=== PATIENT | male | born 1940 | race Caucasian/White ===

== ENCOUNTER 2022-06-20 03:24 | Emergency (ER) | payer MEDICARE, BC ==
[~2022-06-20] VITALS: Ht 177.8 cm; Wt 91.2 kg
[~2022-06-20 03:24] MED LIST: ASPIRIN EC81 MG PO; ATENOLOL100 MG PO; CENTRUM SILVER1 EAC4 PO; FINASTERIDE5 MG PO; FLOMAX0.4 MG PO; FUROSEMIDE40 MG PO; HYDROCHLOROTHIA25 MG PO; METOPROLOL SUCC50 MG PO; MULTI VITAMIN1 EACH PO; NAPROSYN500 MG PO; OMEPRAZOLE20 MG PO; POTASSIUM CHLO20 ME1 PO; TAMSULOSIN HCL0.4 MG PO; VITAMIN C500 M1 PO
[2022-06-20] MEDS ORDERED: XARELTO20 MG PO (03:46)
--- NOTE | 2022-06-20 07:52 | EKG ---
[facility] [address] [facility] [place] [address] Signed Sinus rhythm with premature atrial complexes Left anterior fascicular block Abnormal ECG When compared with ECG of 20-JUN-2022 03:31, (Unconfirmed) Sinus rhythm has replaced Atrial fibrillation Vent. rate has decreased BY [address] no longer depressed in Lateral leads Confirmed by AMINA PATEL MD ([id number]) on 06/20/2022 7:52:23 AM Electronically Signed By: AMINA PATEL MD 06/20/22 0752 PATIENT NAME: TYREL DANIELS Electrocardiogram DATE OF : 40 PHYSICIAN: AMINA PATEL MD REPORT #: [id number] REPORT IS CONFIDENTIAL AND NOT TO BE RELEASED WITHOUT AUTHORIZATION
--- NOTE | 2022-06-20 07:52 | EKG ---
[facility] [address] [facility] [place] [address] Signed Atrial fibrillation with rapid ventricular response Left anterior fascicular block Nonspecific ST abnormality Abnormal ECG When compared with ECG of 30-APR-2022 11:22, Atrial fibrillation has replaced Sinus rhythm Confirmed by AMINA PATEL MD ([id number]) on 06/20/2022 7:52:09 AM Electronically Signed By: AMINA PATEL MD 06/20/22 0752 PATIENT NAME: JEREMIAHTYREL Justin Electrocardiogram DATE OF : 40 PHYSICIAN: AMINA PATEL MD REPORT #: [id number] REPORT IS CONFIDENTIAL AND NOT TO BE RELEASED WITHOUT AUTHORIZATION
== END 2022-06-20 06:54 | disposition home or self-care (01) ==
LOC: ED 03:24
DX: R10.9 Unspecified abdominal pain (principal); I48.91 Unspecified atrial fibrillation; Z79.01 Long term (current) use of anticoagulants; Z79.899 Other long term (current) drug therapy
CPT/HCPCS: 36415; 74174; 80053; 81001; 83690; 83735; 84484; 85025; 85610; 85730; 87502; 93005; 93010; 96361; 96375; 99284-25; C9803; J1170; J2405; J7030; Q9967; U0003

== ENCOUNTER 2024-04-07 16:36 | Emergency (ER) | payer MEDICARE, BC ==
[~2024-04-07] VITALS: Ht 177.8 cm; Wt 93.0 kg
[~2024-04-07 16:36] MED LIST changes: +XARELTO20 MG PO
--- OUTSIDE RECORDS SUMMARY | 2024-04-07 16:39 | XMS ---
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 Eddi has no Care Guidelines for this patient. Lina VISIT COUNT (12 MO.) 1 [facility] Neil TOTAL 1 NOTE: Visits indicate total known visits. ED/UCC VISIT TRACKING (12 MO.) 04/07/2024 16:37 [facility] [place] TYPE: Emergency COMPLAINT: - WOUND CHECK INPATIENT VISIT TRACKING (12 MO.) No inpatient visits to display in this time frame [id number]
[2024-04-07 18:18] VITALS: BP 114/74
== END 2024-04-07 18:18 | disposition home or self-care (01) ==
LOC: ED 16:36
DX: S81.801D Unspecified open wound, right lower leg, subsequent encounter (principal); W22.8XXD Striking against or struck by other objects, subsequent encounter; Z79.899 Other long term (current) drug therapy
CPT/HCPCS: 99282

== ENCOUNTER 2024-08-29 15:56 | Inpatient (IN) | payer MEDICARE, BC ==
[2024-08-29] VITALS (10 sets, daily range): BP systolic 92–106; BP diastolic 61–89
[~2024-08-29] VITALS: Ht 177.8 cm; Wt 94.5 kg
--- NOTE | ~2024-08-29 | EKG ---
[facility] [address] [facility] [place], [place] [address] Draft EK completed, results pending confirmation PATIENT NAME: TYREL DANIELS Electrocardiogram DATE OF : 40 PHYSICIAN: PRELIMINARY REPORT #: [id number] REPORT IS CONFIDENTIAL AND NOT TO BE RELEASED WITHOUT AUTHORIZATION
[2024-08-29] MEDS ORDERED: ALDACTONE25 MG PO (16:25)
[2024-08-29] MEDS ORDERED: VENTOLIN HFA18 GM (16:26)
[2024-08-29] MEDS ORDERED: ROSUVASTATIN CA20 MG PO (16:26)
[2024-08-29 16:41] LABS: BASOPHILS 0.5 % (0-2); EOSINOPHILS 0.9 % (0-6); HEMATOCRIT 37.7 % (35.0-50.0); HEMOGLOBIN 12.6 g/dL (12.0-18.0); LYMPHOCYTES 6.4 % (24-44); MCH 29.9 (27-36); MCHC 33.3 g/dl (30-36); MCV 89.7 fl (81-99); MONOCYTES 4.7 % (0-12); NEUTROPHILS 87.5 % (39-80); PLATELET COUNT 173 K/uL (140-440); RBC 4.21 M/ul (4.3-5.7); RDW 14.3 (10.5-15.0)
[2024-08-29] MEDS ORDERED: FUROSEMIDE 100 MG/10 ML VIAL IV ONE (16:45)
[2024-08-29] MEDS ORDERED: METOPROLOL TARTRATE 5 MG/5 ML VIAL IV SCH (16:45)
[2024-08-29 16:51] LABS: INR 1.55 (0.80-1.30); PROTIME 18.1 Sec (11.2-14.2)
[2024-08-29 16:53] LABS: PARTIAL THROMBOPLASTIN TIME 30.2 Sec (22.9-41.3)
[2024-08-29 17:04] LABS: ALBUMIN 2.9 g/dL (3.4-5.0); ALBUMIN/GLOBULIN RATIO 0.85 (1.1-2.4); ANION GAP 14.1 (7-21); BILIRUBIN, TOTAL 0.5 ng/dL (0.2-1.0); BUN/CREATININE RATIO 20.12 (6.0-28.6); CALCIUM 8.7 mg/dL (8.5-10.1); CREATININE, SERUM 1.64 mg/dL (0.70-1.30); MAGNESIUM 2.1 mg/dL (1.8-2.4); POTASSIUM 4.1 mmol/L (3.5-5.1); PROTEIN, TOTAL 6.3 g/dL (6.4-8.2)
[2024-08-29] MEDS ORDERED: dilTIAZem HCL 25 MG/5 ML VIAL IV ONE (18:00)
[2024-08-29] MEDS ORDERED: DILTIAZEM HCl/D5W 125 ML IV SCH (19:15)
[2024-08-29] MEDS ORDERED: DILTIAZEM HCl/D5W 125 ML IV ONE (19:15)
[2024-08-29] MEDS ORDERED: DOXYCYCLINE HYCLATE 100 MG CAP PO SCH (20:00)
[2024-08-29] MEDS ORDERED: CEFAZOLIN SODIUM 2 GM/20 ML SYR IV SCH (20:00)
[2024-08-29] MEDS ORDERED: Rivaroxaban 10 MG TAB PO SCH (20:15)
[2024-08-29] MEDS ORDERED: FUROSEMIDE 40 MG TAB PO SCH (20:15)
[2024-08-29] MEDS ORDERED: GABAPENTIN300 MG PO (20:17)
[2024-08-29] MEDS ORDERED: FLECAINIDE ACET50 MG PO (20:17)
[2024-08-29] MEDS ORDERED: METOPROLOL TARTRATE 50 MG TAB PO ONE (20:30)
[2024-08-29] MEDS ORDERED: FLECAINIDE ACETATE 50 MG TAB PO SCH (21:00)
[2024-08-29] MEDS ORDERED: ACETAMINOPHEN 325 MG TAB PO PRN (21:00)
[2024-08-29] MEDS ORDERED: FINASTERIDE 5 MG TAB PO SCH (21:00)
--- NOTE | 2024-08-29 21:16 | NUR ---
RECEIVED REPORT FROM THREAD MACHINE OPERATOR. PATIENT MOVED FROM STRETCHER TO BED BY STAFF. PATIENTS ADMISSION COMPLETED. MD AT BEDSIDE. PLAN OF CARE DISCUSSED WITH PATIENT BY MD AND ALL QUESTIONS ANSWERED. PATIENTS VITALS TAKEN AND RECORDED. PATIENTS ASSESMENT COMPLETED. BILAT LOW EXT ELEVATED ON PILLOWS. PATIENTS RLE HAS NOTED 3+ PITTING EDEMA FROM KNEE DOWN. PATIENTS LLE HAS 2T PITTING EDEMA FROM KNEE DOWN. PATIENT DENIES ANY PAIN. PM MEDS GIVEN PER ORDER. IV INFUSING PER ORDER. PATIENT ORIENTED TO ROOM AND CALL LIGHT. SANDWICH BOX PROVIDED AND FRESH ICE WATER PROVIDED. PATIENT DENIES ANY COMMENTS, QUESTIONS, OR CONCERNS. CALL LIGHT IN REACH.
--- NOTE | 2024-08-29 22:39 | NUR ---
DILT DRIP TITRATED PER ORDER-SEE FLOWSHEET. PATIENT IS RESTING IN BED. PATIENT REPORTS HEADACHE, PRN MEDICATION GIVEN PER ORDER. PATIENT ABLE TO REPOSITION SELF IN BED. PATIENT PROVIDED FRESH ICE WATER. PATIENT DENIES ANY FURTHER NEEDS. CALL LIGHT IN REACH.
--- NOTE | 2024-08-29 23:41 | NUR ---
PATIENT IS RESTING IN BED WATCHING TV. PATIENT REPORTS IMPROVEMENT IN HEADACHE IT IS NOW A 2/10. PATIENT DENIES ANY FURTHER INTERVENTIONS FOR HEADAHCE. PATIENTS DILT SRIP TITRATED PER PROTOCOL-SEE FLOWSHEET. WARM BLANKET PROVIDED. PATIENT DENIES ANY NEEDS. CALL LIGHT IN REACH.
[2024-08-30] VITALS (27 sets, daily range): BP systolic 80–108; BP diastolic 63–85
--- NOTE | 2024-08-30 00:06 | NUR ---
PATIENTS VITALS RECORDED. PATIENTS DILT DRIP TURNED OF PER ORDER-SEE FLOWSHEET. PATIENT DENIES ANY HEADAHCE OR PAIN AT THIS TIME. PATIENT IS NOW SL X2 PER ORDER. PATIENT ASSISTED TO TURN ONTOL LEFT SIDE. PATIENT DENIES ANY FURTHER NEEDS. CALL LIGHT IN REACH.
--- NOTE | 2024-08-30 01:04 | NUR ---
PATIENT IS RESTING IN BED WITH EYES CLOSED, RR 23. MAXWELL LIGHT IN REACH.
--- NOTE | 2024-08-30 02:06 | NUR ---
PATIENTS URINAL EMPTIED. PATIENT DENIES ANY PAIN. ASSESMENT COMPLETED. PATIENT DENIES ANY NEEDS. CALL LIGHT IN REACH.
--- NOTE | 2024-08-30 02:56 | NUR ---
PATIENTS HR FOR APPROX THE LAST 10-15 MIN HAS INCREASED TO 100-110. PATIENT PLACED BACK ON DILT DRIP PER ORDER-SEE FLOWSHEET. PATIENT IS RESTING IN BED. NAD NOTED. PATIET DENIES ANY NEEDS. CALL LIGHT IN REACH.
--- NOTE | 2024-08-30 03:19 | NUR ---
PATIENTS DILT DRIP TITRATED PER ORDER FOR HR SUSTAINING ABOVE 100-SEE FLOW SHEET. PATIENT IS RESTING IN BED WITH EYES CLOSED, RR20. NAD NOTED. CALL LIGHT IN REACH.
--- NOTE | 2024-08-30 03:51 | NUR ---
PATIENTS DILT DRIP TITRATED PER ORDER-SEE FLOWSHEET. PATIENTS URINAL EMPTIED. PATIENT PROVIDE SNACK. NO FURTHER NEEDS NOTED. CALL LIGHT IN REACH.
--- NOTE | 2024-08-30 04:05 | NUR ---
PATIENT IS RESTING IN BED ON RIGHT SIDE EYES CLOSED, RR 15. CALL LIGHT IN REACH.
[2024-08-30 05:24] LABS: BASOPHILS 0.4 % (0-2); EOSINOPHILS 1.3 % (0-6); HEMOGLOBIN 11.7 g/dL (12.0-18.0); LYMPHOCYTES 10.7 % (24-44); MCH 29.9 (27-36); MCHC 33.3 g/dl (30-36); MCV 89.6 fl (81-99); NEUTROPHILS 81.6 % (39-80); PLATELET COUNT 176 K/uL (140-440); RBC 3.91 M/ul (4.3-5.7); RDW 14.3 (10.5-15.0)
--- NOTE | 2024-08-30 05:27 | NUR ---
LAB IN ROOM. PATIENTS VITALS TAKEN. PATIENT DENIES ANY PAIN. ASSEMSENT COMPLETED. PATIENT REMAINS ON DILT DRIP NO CHANGES AT THIS TIME. AM MEDS GIVEN PER ORDER. PATIENT DENIES ANY NEEDS. CALL LIGHT IN REACH.
[2024-08-30 05:31] LABS: ANION GAP 10.6 (7-21); BUN/CREATININE RATIO 20.51 (6.0-28.6); CALCIUM 8.7 mg/dL (8.5-10.1); CREATININE, SERUM 1.56 mg/dL (0.70-1.30); MAGNESIUM 2.2 mg/dL (1.8-2.4); POTASSIUM 3.6 mmol/L (3.5-5.1)
--- NOTE | 2024-08-30 06:11 | NUR ---
PATIENTS DILT DRIP TITRATED PER ORDER-SEE FLOW SHEET. PATIENT IS RESTING IN BED WITH EYES CLOSED, RR 19. NAD NOTED. CALL LIGHT IN REACH.
[2024-08-30] MEDS ORDERED: POTASSIUM CHLORIDE 10 MEQ TABCR PO ONE ×2 (07:00→11:00)
[2024-08-30] MEDS ORDERED: METOPROLOL SUCCINATE 100 MG TABCR PO SCH (07:30)
[2024-08-30] MEDS ORDERED: TAMSULOSIN HCL 0.4 MG CAP PO SCH (09:00)
[2024-08-30] MEDS ORDERED: PANTOPRAZOLE SODIUM 40 MG TABEC PO SCH (09:00)
[2024-08-30] MEDS ORDERED: FUROSEMIDE 40 MG TAB PO SCH (09:00)
--- NOTE | 2024-08-30 09:00 | NUR ---
IN PATIENT'S ROOM FOR AM ASSESSMENT. PATIENT REMAINS ON DILT GTT AT 5 MG/HR. HR STILL OVER 100 MOSTLY. PT REPORTS NOT FEELING TOO BAD, BUT DOES ENDORSE PAIN IN HIS LOWER RIGHT FOOT STILL. SIGNIFICANT SWELLING STILL EVIDENT, 2-3+. PT HOPEFUL TO D/C HOME TODAY. PT HAS A SCHEDULED CARDIOVERSION TOMORROW AT [facility] WITH HIS MEDICAL LEAD. PT SITTING UP TO EAT BREAKFAST IN BED. PT REPORTS NOT SLEEPING WELL AND HOPING TO GET A FEW MOMENTS OF REST TODAY.
--- NOTE | 2024-08-30 09:01 | NUR ---
UR CLINICAL REVIEW: [facility] INPT CRITERIA MEDICARE INPT 08/29/24 @ 1943 ORDER MATCHES REG NO AUTH REQUIRED PER MEDICARE RULES PLAN TO DC TO HOME WHEN STABLE.
[2024-08-30] MEDS ORDERED: METOPROLOL TARTRATE 50 MG TAB PO STA (10:48)
--- NOTE | 2024-08-30 10:59 | NUR ---
PATIENT ALERT AND ORIENTED. STATES HE LIVES ALONE IN HOME WITH 3 STEPS TO GET INSIDE. SOMETIMES STRUGGLES TO USE THOSE STEPS, HOWEVER, HE CAN STILL DO IT. STATES HE HAS NO DME. HE IS ABLE TO DRIVE AT [place] WITHOUT ISSUES. PATIENT ALSO HAS NO FINANCIAL ISSUES. HE IS ABLE TO PAY UTILITIES, FOOD AND OBTAIN MEDS WITHOUT DIFFICULTY. DENIES ANY CASE MANAGEMENT NEEDS AT THIS TIME. STATES HE WILL NOTIFY STAFF WITH ANY CHANGES.
[2024-08-30] MEDS ORDERED: FUROSEMIDE 20 MG/2 ML VIAL IV ONE (11:00)
--- NOTE | 2024-08-30 11:01 | NUR ---
PT NOT AVAILABLE FOR VISIT. PROVIDED PRAYER.
--- NOTE | 2024-08-30 11:05 | NUR ---
ADDITIONAL PO MEDS GIVEN FOR HR CONTROL, SEE EMAR. PATIENT STILL EAGER TO D/C HOME TODAY.
--- NOTE | 2024-08-30 11:55 | NUR ---
NOON ASSESSMENT COMPLETE. PATIENT REMAINS ON DILT GTT AT 5 MG/HR. CONTINUE TOMONITOR.
[2024-08-30] MEDS ORDERED: PHARMACY RENAL DOSE ADJUSTMENT 1 DOSE MISC PO SCH (12:00)
[2024-08-30] MEDS ORDERED: AMOXICILLIN/CLAVULANATE K 875 MG TAB PO SCH (13:00)
--- NOTE | 2024-08-30 14:00 | NUR ---
HAVE WENT BY THE PATIENT ROOM AND CHECKED WITH RN PT HAS NO NEEDS AND WAS ASLEEP THIS AFTERNOON
[2024-08-30] MEDS ORDERED: ZINC50 MG PO (14:10)
[2024-08-30] MEDS ORDERED: MAGOX 400400 MG PO (14:11)
--- NOTE | 2024-08-30 14:11 | NUR ---
MED REC COMPLETE
[2024-08-30] MEDS ORDERED: AMOX TR-K CLV1 EAC1 PO (14:18)
[2024-08-30] MEDS ORDERED: DOXYCYCLINE HY100 MG PO (14:19)
[2024-08-30] MEDS ORDERED: METOPROLOL SUC100 MG PO (14:20)
--- NOTE | 2024-08-30 14:36 | NUR ---
PATIENT READY FOR D/C HOME. PT UP TO HALLWAY AND AMBULATED IN [facility] WITH RN. HR UP TO 120s AT THE HIGHEST, BUT HR SETTLED AROUND 107 AFTER AMBULATION. PT PLANNING ON DRIVING SELF HOME TODAY. PT REPORTS HIS SON SHERRIE WILL BE TAKING HIM OVER TO [facility] TOMORROW FOR HIS APPT.
[2024-08-30] MEDS ORDERED: TRAMADOL HCL50 MG PO ×2 (14:54→14:58)
--- NOTE | 2024-08-30 15:44 | NUR ---
PATIENT D/C HOME AROUND 1600. PT DRIVING SELF HOME, BUT STATES HE LIVES CLOSE. PT'S SON IS PLANNING TO DRIVE HIM TOMORROW TO HIS APPT. F/U APPT MADE WITH [facility] ON 09/05/24. DISCHARGE INSTRUCTIONS GONE OVER WITH PATIENT AND ENCOURAGED TO RETURN TO ER WITH ANY PROBLEMS. PT STILL HAVING GOOD AMOUNTS OF SWELLING TO LOWER LEGS. ENC LEGS ELEVATED.
== END 2024-08-30 15:17 | disposition home or self-care (01) | DRG 603 ==
LOC: ED 15:56 → CCU 20:05
PROVIDERS: Emergency Medicine; ADMIT Student in an Organized Health Care Education/Training Program; ATTEND Student in an Organized Health Care Education/Training Program
DX: L03.115 Cellulitis of right lower limb (principal); I48.91 Unspecified atrial fibrillation; K21.9 Gastro-esophageal reflux disease without esophagitis; N40.0 Benign prostatic hyperplasia without lower urinary tract symptoms; M19.90 Unspecified osteoarthritis, unspecified site; Z86.711 Personal history of pulmonary embolism; Z79.01 Long term (current) use of anticoagulants; Z79.899 Other long term (current) drug therapy; Z96.653 Presence of artificial knee joint, bilateral
CPT/HCPCS: 36415; 80048; 80053; 83735; 83880; 84484; 85025; 85610; 85730; 93005; 93010; 93971; A9270; J0690; J1940

== ENCOUNTER 2024-11-26 12:39 | Emergency (ER) | payer MEDICARE, BC ==
[~2024-11-26] VITALS: Ht 177.8 cm; Wt 91.2 kg
[~2024-11-26 12:39] MED LIST changes: +ALDACTONE25 MG PO; +AMOX TR-K CLV1 EAC1 PO; +DOXYCYCLINE HY100 MG PO; +FLECAINIDE ACET50 MG PO; +GABAPENTIN300 MG PO; +MAGOX 400400 MG PO; +METOPROLOL SUC100 MG PO; +ROSUVASTATIN CA20 MG PO; +TRAMADOL HCL50 MG PO; +VENTOLIN HFA18 GM; +ZINC50 MG PO
[2024-11-26] MEDS ORDERED: ACETAMINOPHEN 500 MG TAB PO ONE (13:45)
[2024-11-26 15:04] VITALS: BP 115/78
== END 2024-11-26 14:17 | disposition home or self-care (01) ==
LOC: ED 12:39
DX: S51.811A Laceration without foreign body of right forearm, initial encounter (principal); S80.211A Abrasion, right knee, initial encounter; I48.91 Unspecified atrial fibrillation; Z79.01 Long term (current) use of anticoagulants; Z79.899 Other long term (current) drug therapy; W18.30XA Fall on same level, unspecified, initial encounter
CPT/HCPCS: 99282; A9270

== ENCOUNTER 2024-11-30 08:41 | Emergency (ER) | payer MEDICARE, BC ==
[~2024-11-30] VITALS: Ht 177.8 cm; Wt 90.3 kg
--- OUTSIDE RECORDS SUMMARY | 2024-11-30 08:47 | XMS ---
PreManage Notification: TYREL DANIELS Security Convention Worker Events No recent Security Events currently on file CRITERIA MET - [facility] - 2 Visits in 30 Days CARE PROVIDERS There are no care providers on record at this time. Eddi has no Care Guidelines for this patient. Lina VISIT COUNT (12 MO.) [address] [facility] TOTAL 4 NOTE: Visits indicate total known visits. ED/C VISIT TRACKING (12 MO.) 11/30/2024 08:[address] [facility] [place] TYPE: Emergency COMPLAINT: - WEAKNESS 11/26/2024 12:40 [facility] TYPE: Emergency COMPLAINT: - LACERATION DIAGNOSES: - Abrasion, right knee, initial encounter - Fall on same level, unspecified, initial encounter - Laceration without foreign body of right forearm, initial encounter - manager intermediate (current) use of anticoagulants - Other joint terminal attack controller (current) drug therapy - Unspecified atrial fibrillation 08/29/2024 15:[address] [facility] [place] TYPE: Emergency COMPLAINT: - FOOT SWELLING 04/07/2024 16:37 [facility] TYPE: Emergency COMPLAINT: - WOUND CHECK DIAGNOSES: - Other care home (current) drug therapy - Striking against or struck by other objects, subsequent encounter - Unspecified open wound, right lower leg, subsequent encounter INPATIENT VISIT TRACKING (12 MO.) 08/29/2024 20:05 [facility] TYPE: Critical Care COMPLAINT: - AFIB RVR RLE CELLULITIS DIAGNOSES: - Benign prostatic hyperplasia without lower urinary tract symptoms - Benign prostatic hyperplasia without lower urinary tract symptoms - Cellulitis of right lower limb - Gastro-esophageal reflux disease without esophagitis - Gastro-esophageal reflux disease without esophagitis - manager intermediate (current) use of anticoagulants - manager intermediate (current) use of anticoagulants - Other care home (current) drug therapy - Other joint terminal attack controller (current) drug therapy - Personal history of pulmonary embolism - Personal history of pulmonary embolism - Presence of artificial knee joint, bilateral - Presence of artificial knee joint, bilateral - Unspecified atrial fibrillation - Unspecified atrial fibrillation - Unspecified osteoarthritis, unspecified site - Unspecified osteoarthritis, unspecified site [email or web address]
[2024-11-30 09:41] LABS: BASOPHILS 0.3 % (0-2); EOSINOPHILS 0.2 % (0-6); HEMATOCRIT 34.9 % (35.0-50.0); HEMOGLOBIN 11.9 g/dL (12.0-18.0); LYMPHOCYTES 6.1 % (24-44); MCH 29.3 (27-36); MCHC 34.1 g/dl (30-36); MCV 85.9 fl (81-99); MONOCYTES 5.2 % (0-12); NEUTROPHILS 88.2 % (39-80); PLATELET COUNT 238 K/uL (140-440); RBC 4.07 M/ul (4.3-5.7); RDW 15.7 (10.5-15.0)
[2024-11-30 09:54] LABS: INR 1.69 (0.80-1.30); PROTIME 19.8 Sec (11.2-14.2)
[2024-11-30 09:59] LABS: ALBUMIN 2.5 g/dL (3.4-5.0); ALBUMIN/GLOBULIN RATIO 0.66 (1.1-2.4); ANION GAP 12.2 (7-21); BILIRUBIN, TOTAL 0.6 ng/dL (0.2-1.0); BUN/CREATININE RATIO 21.08 (6.0-28.6); CALCIUM 8.7 mg/dL (8.5-10.1); CREATININE, SERUM 1.85 mg/dL (0.70-1.30); POTASSIUM 3.2 mmol/L (3.5-5.1); PROTEIN, TOTAL 6.3 g/dL (6.4-8.2)
[2024-11-30 10:18] LABS: ABO O; ANTIBODY SCREEN NEGATIVE; RH POSITIVE
[2024-11-30] MEDS ORDERED: SODIUM CHLORIDE 0.9% 500 ML IV PRN (10:30)
[2024-11-30] MEDS ORDERED: POTASSIUM CHLORIDE 10 MEQ/100 ML BAG IV ONE (10:30)
[2024-11-30] MEDS ORDERED: POTASSIUM CHLORIDE 10 MEQ TABCR PO ONE (10:30)
--- NOTE | 2024-11-30 12:49 | EKG ---
[facility] [address] [facility] [place] [address] Signed Atrial fibrillation with rapid ventricular response Left anterior fascicular block Abnormal ECG When compared with ECG of 29-AUG-2024 16:47, No significant change was found Confirmed by Woody Kyle MD ([id number]) on 11/30/2024 12:49:29 PM Electronically Signed By: WOODY KYLE MD 11/30/24 1249 PATIENT NAME: TYREL DANIELS Electrocardiogram DATE OF : 40 PHYSICIAN: WOODY KYLE MD REPORT #: [id number] REPORT IS CONFIDENTIAL AND NOT TO BE RELEASED WITHOUT AUTHORIZATION
[2024-11-30 16:20] VITALS: BP 136/89
--- NOTE | 2024-11-30 16:28 | NUR ---
LE 1210: THIS RN RETURNS CALL FROM ED REGARDING A WOUND. ED NOTIFIED IT WILL BE ABOUT AN HOUR BEFORE THIS WOUND RN IS AVAILABLE TO CONSULT. ED RN ASKED TO APPLY A WET WASH CLOTH TO THE AREA. LE 1330: THIS RN COMES DOWN TO CONSULT OF RIGHT ARM SKIN TEAR. THE PT AND HIS SON ARE IN THE ROOM. THE WET HAND TOWEL IS PULLED BACK. THIS RN HAD BEEN EXPECTING DRIED/SHRIVELED SKIN FROM A SKIN FLAP, BUT WAS SURPRISED WITH A LARGE GELATINOUS BLOOD CLOT ADHERED TO THE SKIN. STARTING AT THE ELBOW AND TOP OF THE FOREARM TO MID FOREARM. THE BLOOD CLOT AREA MEASURES 15.9CM X 7.5CM. THE PT REPORTS THAT HE WAS OUTSIDE FEEDING HIS CATS AND HIT HIS ARM AND RIPPED THE SKIN. HE CAME TO THE ER FOR THIS. THE SKIN FLAP WAS RE-APPROIXMATED THAT TIME, STERI STRIPPED, AND WRAPPED UP. PT DOES TAKE XARELTO DAILY. THIS RN STARTS BY REMOVING GLOBS OF GELATINOUS BLOOD BY FINGER, THEN SWITCHED TO USING FORCEPS WHICH WORKED MUCH BETTER, HOWEVER, A LOT OF THE PT'S HAIR IS MATTED AND STUCK IN THE BLOD CREATING A WAX STRIP EFFECT. THIS RN CHNAGES HER TATIC TO TWEEZERS AND SMALL SCISSORS TO SEPARATE THE GELATINOUS BLOOD FROM THE SKIN, THE HAIRS ARE CUT. THIS PROVES TO BE EFFECTIVE IS REMOVING A 12.2CM X 3.7CM X 1CM SECTION OF THE GELATINOUS BLOOD. REMOVING THAT SECTION OF GELATINOUS BLOOD REVEALED A BEAUTIFULLY PRESEVERED, INTACT SKIN FLAP OVER THE SKIN TEAR AREA. THERE IS ALSO WHAT APPEARS TO BE A HEAMTOMA THAT THE ER DOC IS ASKED TO COME IN AN TONA, NO BLOOD WAS EXPELLED, MOST LIKELY MEANING THAT THE BLOOD IN THE HEMATOMA AREA HAS ALREADY GELTAINIZED AND COULD CONTAIN SUBCUTANEOUS TISSUE. SOME AREAS OF BLOOD ARE ATTEMPTED TO BE CLEANED UP AND REMOVED WITH HYDROGEN PEROXIDE. THIS WORKS SOME, BUT THERE ARE AREAS WHERE IT IS TOO PAINFUL FOR THE PT TO HAVE IT REMOVED AND IS PULLING ON HEALTHY SKIN AND TRYING TO TEAR IT UP. THE PERIWOUND SKIN IS CLEANED UP AND MUCH POSSIBLE. PHOTOGRAPHS BEFORE, DURING, AND AFTER THE REMOVAL OF THE GELATINOUS BLOOD IS REMOVED ARE TAKEN. SKIN PREP IS LIGHTLY APPLIED TO THE PERIWOUND SKIN. 2 - 4X7 VERSATELS ARE APPLIED OVER THE SKIN TEAR AREA. 2 QUIK CLOTS ARE APPLIED OVER THAT TO HELP STAUNCH THE LEAKING OF BLOOD. NON-ADHERENT PADS ARE PLACED OVER THE AREA, THEN SECURED IN PLACE WITH 2 ROLLS OF FLEXICON AND SECURED IN PLACE WITH MEDIPORE TAPE. THIS RN RECOMMENDS TO THE ER DOC TO WRITE FOR CONTINUED OUTPATIENT WOUND CARE. FAMILY IS NOTIFIED THAT THIS RN WOULD LIKE TO SEE HIM BACK ON THURSDAY TO CHECK ON THE PROGRESS. THEY WILL BE SENT HOME WITH EXTRA NON-ADHERENT PADS AND FLEXICON. SHOULD THE AREA BLEED THROUGH, THEY ARE ASKED TO CALL DAY SURGERY TO BE SEEN TOMORROW TO RE-ASSESS.
== END 2024-11-30 16:20 | disposition home or self-care (01) ==
LOC: ED 08:41
PROVIDERS: Emergency Medicine
DX: E87.6 Hypokalemia (principal); S51.011A Laceration without foreign body of right elbow, initial encounter; I48.91 Unspecified atrial fibrillation; Z79.01 Long term (current) use of anticoagulants; Z79.899 Other long term (current) drug therapy; W18.30XA Fall on same level, unspecified, initial encounter
CPT/HCPCS: 36415; 71045; 71100; 80053; 85025; 85610; 86850; 86900; 86901; 93005; 93010; 96374; 99284-25; A9270; J3480; J7040

== ENCOUNTER 2025-01-14 13:22 | Emergency (ER) | payer MEDICARE, BC ==
[~2025-01-14] VITALS: Ht 177.8 cm; Wt 91.7 kg
[2025-01-14] MEDS ORDERED: MORPHINE SULFATE 10 MG/ML VIAL IM ONE (14:00)
[2025-01-14] MEDS ORDERED: HYDROCODON-ACE1 EA10 PO (16:02)
[2025-01-14 16:17] VITALS: BP 132/78
== END 2025-01-14 16:17 | disposition home or self-care (01) ==
LOC: ED 13:22
DX: M25.511 Pain in right shoulder (principal); E78.00 Pure hypercholesterolemia, unspecified; Z79.899 Other long term (current) drug therapy
CPT/HCPCS: 71045; 73030; 96372; 99283-25; J2270